=== PATIENT | female | born 1945 | race Caucasian/White ===

== ENCOUNTER → 2017-06-01 | Outpatient (REF) ==
[~2017-06-01] MED LIST: ASPI81EC PO; ASPIRIN E.C. 8181 MG PO; ATORVASTATIN; BEXTRA PO; CATAPRES 0.1MG0.1 MG PO; COZAAR 50MG50 MG/TAB PO; COZAAR100 MG PO; FLEXERIL 1010 MG/TAB PO; FLEXERIL10 MG PO; GLUCOPHAGE; GLUCOPHAGE850 MG/TAB PO; HCTZ 25MG25 MG PO; HYDRODIURIL; HYDRODIURIL25 MG PO; HYDRODIURIL50 MG PO; LIPITOR 10MG10 MG PO; LIPITOR 40MG TA40 MG PO; LIPITOR40 MG PO; LISINOPRIL; LOPRESSOR; LOPRESSOR 225 MG/TAB PO; LOPRESSOR100 MG PO; LOPRESSOR50 MG PO; LORTAB 5/500 501 TAB; LORTAB 5/500 501 TAB PO; METFORMIN850 MG PO; NITROSTAT0.4 MG/TAB SL; NORCO 325 MG-51 TAB PO; PAXIL 20MG20 MG PO; PAXIL20 MG PO; PLAVIX 75MG TAB75 MG PO; PREVACID30 M1 PO; PREVACID30 MG PO; PRILOSEC 20MG20 MG PO; RANEXA 500MG T500 MG PO; ZESTRIL20 MG PO; [UNRECOGNIZED DRUG - OTHER] PO
== END ==
LOC: ZLAB.WCH 18:12
DX: Z01.89 Encounter for other specified special examinations (principal)

== ENCOUNTER 2017-06-17 10:09 | Day surgery (SDC) | payer MEDICARE, MEDICAID ==
[~2017-06-17] VITALS: Ht 162.6 cm; Wt 75.0 kg
[2017-06-17] VITALS (12 sets, daily range): BP systolic 138–176; BP diastolic 83–107; PULSE 66–86; TEMP 97.8–98.4
[~2017-06-17 10:09] MED LIST changes: -CATAPRES 0.1MG0.1 MG PO; -COZAAR100 MG PO; -LOPRESSOR 225 MG/TAB PO; -RANEXA 500MG T500 MG PO
[2017-06-17 11:17] LABS: HEMATOCRIT 42.2 % (37.0-47.0); HEMOGLOBIN 14.5 g/dl (12.5-16.0); MEAN CELL VOLUME 85 fl (80.0-100.0); MEAN CORPUSCULAR HEMOGLOBIN 29 pg (27.0-31.0); MEAN CORPUSCULAR HGB CONC 34 g/dl (33.0-37.0); MEAN PLATELET VOLUME 9.3 fl (7.4-10.4); PLATELET COUNT 221 K/mm3 (130-400); RED BLOOD COUNT 4.96 M/mm3 (4.10-5.30); REDCELL DISTRIBUTION WIDTH-CV 12.2 % (11.5-14.5); WHITE BLOOD COUNT 4.7 K/mm3 (4.8-10.8)
[2017-06-17 11:23] LABS: PROTHROMBIN TIME 10.8 SECONDS (9.7-12.8)
[2017-06-17 11:35] LABS: CALCIUM 9.1 mg/dL (8.4-10.2); CREATININE, serum 0.97 mg/dL (0.52-1.25); POTASSIUM 3.9 mmol/L (3.4-5.0)
[2017-06-17] MEDS ORDERED: ASPIRIN E.C. 8181 MG PO (11:37)
== END 2017-06-17 17:55 | disposition home or self-care (01) ==
LOC: COL.CAR 10:09
PROVIDERS: Internal Medicine Interventional Cardiology
DX: I25.10 Atherosclerotic heart disease of native coronary artery without angina pectoris (principal); I71.4 Abdominal aortic aneurysm, without rupture; I74.5 Embolism and thrombosis of iliac artery; I83.813 Varicose veins of bilateral lower extremities with pain; I73.9 Peripheral vascular disease, unspecified; I10 Essential (primary) hypertension; I25.2 Old myocardial infarction; E11.9 Type 2 diabetes mellitus without complications; E78.5 Hyperlipidemia, unspecified; K21.9 Gastro-esophageal reflux disease without esophagitis; M19.90 Unspecified osteoarthritis, unspecified site; F41.9 Anxiety disorder, unspecified; Z79.84 Long term (current) use of oral hypoglycemic drugs; Z90.49 Acquired absence of other specified parts of digestive tract; Z90.710 Acquired absence of both cervix and uterus; Z87.891 Personal history of nicotine dependence; Z85.828 Personal history of other malignant neoplasm of skin; Z85.41 Personal history of malignant neoplasm of cervix uteri; Z82.49 Family history of ischemic heart disease and other diseases of the circulatory system
CPT/HCPCS: C1760; C1769; C1894; J2250; J3010; Q9967

== ENCOUNTER 2017-07-07 16:15 | Observation (INO) | payer MEDICARE, MEDICAID ==
[~2017-07-07] VITALS: Ht 162.6 cm; Wt 77.0 kg
[2017-07-07 17:02] LABS: BASO # 0.1 (0.0-0.2); BASO % 0.9 % (0.0-2.0); EOS # 0.2 (0.0-0.7); EOS % 4.5 % (0-4.0); GRAN # 3.1 (1.4-6.5); GRAN % 58.2 % (42.2-75.2); HEMATOCRIT 41.9 % (37.0-47.0); HEMOGLOBIN 14.8 g/dl (12.5-16.0); LYMPH # 1.3 (1.2-3.4); MEAN CELL VOLUME 84 fl (80.0-100.0); MEAN CORPUSCULAR HEMOGLOBIN 30 pg (27.0-31.0); MEAN CORPUSCULAR HGB CONC 35 g/dl (33.0-37.0); MEAN PLATELET VOLUME 9.3 fl (7.4-10.4); MONO # 0.6 (0.1-0.6); PLATELET COUNT 246 K/mm3 (130-400); RED BLOOD COUNT 4.97 M/mm3 (4.10-5.30); REDCELL DISTRIBUTION WIDTH-CV 12.3 % (11.5-14.5); WHITE BLOOD COUNT 5.4 K/mm3 (4.8-10.8)
[2017-07-07 17:11] LABS: ADJUSTED CALCIUM 9.1 mg/dL (8.4-10.2); ALANINE AMINOTRANSFERASE 32 U/L (9-52); ALBUMIN 4.1 gm/dL (3.5-5.0); ALKALINE PHOSPHATASE 65 U/L (50-136); ANION GAP 10 mmol/L (7-16); BILIRUBIN,TOTAL 0.6 mg/dL (0.0-1.0); BLOOD UREA NITROGEN 16 mg/dL (7-17); CALCIUM 9.2 mg/dL (8.4-10.2); CARBON DIOXIDE 26 mmol/L (22-30); CHLORIDE 101 mmol/L (98-107); CREATININE, serum 0.98 mg/dL (0.52-1.25); GLUCOSE 115 mg/dL (74-106); LIPASE 611 U/L (23-300); POTASSIUM 3.4 mmol/L (3.4-5.0); SODIUM 137 mmol/L (137-145); TOTAL PROTEIN 6.8 gm/dL (6.4-8.2)
[2017-07-07 17:23] LABS: TROPONIN-I < 0.012 ng/mL (0.000-0.034)
[2017-07-07] MEDS ORDERED: RANEXA 500MG T500 MG PO (18:25)
[2017-07-07 20:32] VITALS: BP 141/67; PULSE 58; TEMP 97.7
[2017-07-07 21:06] LABS: INR 0.9 (0.8-3.0); PROTHROMBIN TIME 10.1 SECONDS (9.7-12.8)
[2017-07-07 21:09] LABS: PARTIAL THROMBOPLASTIN TIME 29.6 SECONDS (26.0-37.0)
[2017-07-07 21:11] LABS: MAGNESIUM 1.8 mg/dL (1.6-2.3)
[2017-07-07 21:34] LABS: TROPONIN-I < 0.012 ng/mL (0.000-0.034)
[2017-07-08 00:15] VITALS: BP 142/71; PULSE 55; TEMP 97
[2017-07-08 03:23] VITALS: BP 150/59; PULSE 54; TEMP 97.8
[2017-07-08 06:57] LABS: BASO % 0.8 % (0.0-2.0); EOS # 0.3 (0.0-0.7); HEMATOCRIT 41.6 % (37.0-47.0); HEMOGLOBIN 14.3 g/dl (12.5-16.0); LYMPH # 1.1 (1.2-3.4); LYMPH % 21.1 % (20.0-51.0); MEAN CELL VOLUME 87 fl (80.0-100.0); MEAN CORPUSCULAR HEMOGLOBIN 30 pg (27.0-31.0); MEAN CORPUSCULAR HGB CONC 34 g/dl (33.0-37.0); MEAN PLATELET VOLUME 9.2 fl (7.4-10.4); MONO # 0.6 (0.1-0.6); MONO % 12.7 % (1.7-9.3); PLATELET COUNT 217 K/mm3 (130-400); RED BLOOD COUNT 4.81 M/mm3 (4.10-5.30); REDCELL DISTRIBUTION WIDTH-CV 12.6 % (11.5-14.5)
[2017-07-08 07:12] LABS: ADJUSTED CALCIUM 9.1 mg/dL (8.4-10.2); ALANINE AMINOTRANSFERASE 30 U/L (9-52); ALBUMIN 3.8 gm/dL (3.5-5.0); ALKALINE PHOSPHATASE 55 U/L (50-136); ANION GAP 8 mmol/L (7-16); BILIRUBIN,TOTAL 0.8 mg/dL (0.0-1.0); BLOOD UREA NITROGEN 13 mg/dL (7-17); CALCIUM 8.9 mg/dL (8.4-10.2); CARBON DIOXIDE 29 mmol/L (22-30); CHLORIDE 104 mmol/L (98-107); CHOLESTEROL 211 mg/dL (120-200); CREATININE, serum 1.04 mg/dL (0.52-1.25); GLUCOSE 103 mg/dL (74-106); HDL CHOLESTEROL 50 mg/dL; LDL CHOLESTEROL 122 mg/dL; LIPASE 48 U/L (23-300); POTASSIUM 3.9 mmol/L (3.4-5.0); SODIUM 140 mmol/L (137-145); TOTAL PROTEIN 6.3 gm/dL (6.4-8.2); TRIGLYCERIDE 197 mg/dL
[2017-07-08 07:22] LABS: TROPONIN-I < 0.012 ng/mL (0.000-0.034)
[2017-07-08 08:09] VITALS: BP 159/76; PULSE 59; TEMP 98.4
[2017-07-08 11:42] VITALS: BP 157/66; PULSE 75; TEMP 97.6
[2017-07-08] MEDS ORDERED: LOPRESSOR 225 MG/TAB PO (14:46)
[2017-07-08] MEDS ORDERED: COZAAR100 MG PO (14:47)
[2017-07-08] MEDS ORDERED: ASPIRIN E.C. 8181 MG PO (14:49)
[2017-07-08 14:58] VITALS: BP 149/60; PULSE 62; TEMP 98.4
== END 2017-07-08 18:30 | disposition home or self-care (01) ==
LOC: COL.ER 16:15 → MEDICAL 19:08
PROVIDERS: Emergency Medicine; Nurse Practitioner Family
DX: R07.9 Chest pain, unspecified (principal); I10 Essential (primary) hypertension; I25.10 Atherosclerotic heart disease of native coronary artery without angina pectoris; R42 Dizziness and giddiness; I25.2 Old myocardial infarction; K29.70 Gastritis, unspecified, without bleeding; K21.9 Gastro-esophageal reflux disease without esophagitis; E78.5 Hyperlipidemia, unspecified; K44.9 Diaphragmatic hernia without obstruction or gangrene; E11.9 Type 2 diabetes mellitus without complications; Z79.01 Long term (current) use of anticoagulants; Z79.4 Long term (current) use of insulin; Z95.818 Presence of other cardiac implants and grafts; Z90.710 Acquired absence of both cervix and uterus; Z90.49 Acquired absence of other specified parts of digestive tract; Z90.721 Acquired absence of ovaries, unilateral; Z85.41 Personal history of malignant neoplasm of cervix uteri; Z87.891 Personal history of nicotine dependence; Z85.828 Personal history of other malignant neoplasm of skin; Z86.79 Personal history of other diseases of the circulatory system
CPT/HCPCS: 99222-AI; 99239; C9113; G0378; G8978-GP; G8979-GP; G8987-GO; G8988-GO; J1170; J2550; J7030; Q9967

== ENCOUNTER 2017-07-19 15:58 | Inpatient (IN) | payer MEDICARE, MEDICAID ==
[~2017-07-19] VITALS: Ht 162.6 cm; Wt 76.1 kg
[2017-07-19] VITALS (389 sets, daily range): BP systolic 77–191; BP diastolic 36–114; PULSE 57–83; TEMP 97.8–97.9; O2SAT 78–100
[~2017-07-19 15:58] MED LIST changes: +COZAAR100 MG PO; +LOPRESSOR 225 MG/TAB PO; +RANEXA 500MG T500 MG PO
[2017-07-20] VITALS (754 sets, daily range): BP systolic 73–131; BP diastolic 44–87; PULSE 72–80; TEMP 97.1–98.4; O2SAT 89–100
[2017-07-20 05:49] LABS: BASO % 0.2 % (0.0-2.0); EOS % 0.2 % (0-4.0); GRAN # 4.9 (1.4-6.5); GRAN % 77.5 % (42.2-75.2); HEMATOCRIT 35.5 % (37.0-47.0); HEMOGLOBIN 11.8 g/dl (12.5-16.0); LYMPH # 0.7 (1.2-3.4); LYMPH % 11.6 % (20.0-51.0); MEAN CELL VOLUME 87 fl (80.0-100.0); MEAN CORPUSCULAR HEMOGLOBIN 29 pg (27.0-31.0); MEAN CORPUSCULAR HGB CONC 33 g/dl (33.0-37.0); MEAN PLATELET VOLUME 9.3 fl (7.4-10.4); MONO # 0.6 (0.1-0.6); MONO % 10.2 % (1.7-9.3); PLATELET COUNT 181 K/mm3 (130-400); RED BLOOD COUNT 4.06 M/mm3 (4.10-5.30); REDCELL DISTRIBUTION WIDTH-CV 12.6 % (11.5-14.5); WHITE BLOOD COUNT 6.3 K/mm3 (4.8-10.8)
[2017-07-20 06:00] LABS: CALCIUM 8.1 mg/dL (8.4-10.2); CREATININE, serum 1.05 mg/dL (0.52-1.25); POTASSIUM 3.7 mmol/L (3.4-5.0)
== END 2017-07-20 17:15 | disposition home or self-care (01) | DRG 301 ==
LOC: COL.RAD 15:58 → ICU 17:03
PROVIDERS: Internal Medicine Interventional Cardiology
DX: I71.03 Dissection of thoracoabdominal aorta (principal); I10 Essential (primary) hypertension; I25.10 Atherosclerotic heart disease of native coronary artery without angina pectoris; F17.210 Nicotine dependence, cigarettes, uncomplicated; I73.9 Peripheral vascular disease, unspecified; Z95.820 Peripheral vascular angioplasty status with implants and grafts
CPT/HCPCS: J1940; J2270; J2405; J7030; Q9967

== ENCOUNTER 2017-07-25 13:09 | Emergency (ER) | payer MEDICARE, MEDICAID ==
[~2017-07-25] VITALS: Ht 162.6 cm; Wt 72.7 kg
[2017-07-25 13:10] VITALS: TEMP 97.6
[2017-07-25] MEDS ORDERED: COZAAR100 MG PO (13:27)
[2017-07-25] MEDS ORDERED: CATAPRES 0.1MG0.1 MG PO (13:40)
[2017-07-25 14:00] LABS: ADJUSTED CALCIUM 9.4 mg/dL (8.4-10.2); ALBUMIN 3.8 gm/dL (3.5-5.0); BILIRUBIN,TOTAL 1.7 mg/dL (0.0-1.0); CALCIUM 9.2 mg/dL (8.4-10.2); CREATININE, serum 1.9 mg/dL (0.52-1.25); POTASSIUM 3.2 mmol/L (3.4-5.0); TOTAL PROTEIN 6.8 gm/dL (6.4-8.2)
[2017-07-25 14:08] LABS: BASO # 0.1 (0.0-0.2); BASO % 0.8 % (0.0-2.0); EOS # 0.3 (0.0-0.7); EOS % 3.6 % (0-4.0); GRAN # 4.7 (1.4-6.5); GRAN % 62.9 % (42.2-75.2); HEMOGLOBIN 12.6 g/dl (12.5-16.0); LYMPH # 1.3 (1.2-3.4); LYMPH % 17.2 % (20.0-51.0); MEAN CELL VOLUME 84 fl (80.0-100.0); MEAN CORPUSCULAR HEMOGLOBIN 30 pg (27.0-31.0); MEAN CORPUSCULAR HGB CONC 36 g/dl (33.0-37.0); MEAN PLATELET VOLUME 9.7 fl (7.4-10.4); MONO # 1.1 (0.1-0.6); PLATELET COUNT 302 K/mm3 (130-400); RED BLOOD COUNT 4.22 M/mm3 (4.10-5.30); REDCELL DISTRIBUTION WIDTH-CV 12.7 % (11.5-14.5); WHITE BLOOD COUNT 7.5 K/mm3 (4.8-10.8)
[2017-07-25 14:09] LABS: HEMATOCRIT 35.5 % (37.0-47.0)
[2017-07-25 14:13] LABS: PH 5 (5-8); SQUAMOUS EPITHELIAL 0-2 /hpf; URINE APPEARANCE Clear; URINE BACTERIA None Seen /hpf; URINE BILIRUBIN Negative (NEGATIVE); URINE BLOOD Negative (NEGATIVE); URINE COLOR Yellow; URINE GLUCOSE Negative (NEGATIVE); URINE KETONE Negative (NEGATIVE); URINE RBC 0-2 /hpf; URINE UROBILINOGEN Negative (NEGATIVE); URINE WBC 0-2 /hpf
[2017-07-25 15:24] VITALS: BP 114/55; PULSE 60
== END 2017-07-25 15:39 | disposition home or self-care (01) ==
LOC: COL.ER 13:09
PROVIDERS: Family Medicine
DX: I95.9 Hypotension, unspecified (principal); E86.0 Dehydration; I25.10 Atherosclerotic heart disease of native coronary artery without angina pectoris; Z79.82 Long term (current) use of aspirin; Z86.79 Personal history of other diseases of the circulatory system
CPT/HCPCS: J2405; J7030; Q9967

== ENCOUNTER 2018-01-06 09:13 | Day surgery (SDC) | payer MEDICARE, MEDICAID ==
[~2018-01-06] VITALS: Ht 160 cm; Wt 74.7 kg
[~2018-01-06 09:13] MED LIST changes: +CATAPRES 0.1MG0.1 MG PO
[2018-01-06 09:52] VITALS: BP 114/71; PULSE 68; TEMP 98.4
[2018-01-06] MEDS ORDERED: CATAPRES 0.1MG0.1 MG PO (09:59)
[2018-01-06] MEDS ORDERED: LOPRESSOR100 MG PO (10:04)
[2018-01-06 11:30] VITALS: BP 87/63; PULSE 73; TEMP 98.2
[2018-01-06 11:45] VITALS: BP 110/65; PULSE 73
[2018-01-06 12:00] VITALS: BP 103/59; PULSE 70
[2018-01-06 12:15] VITALS: BP 108/73; PULSE 71
[2018-01-06 12:45] VITALS: BP 102/68; PULSE 72
== END 2018-01-06 13:00 | disposition home or self-care (01) ==
LOC: SDCO 09:13
DX: D12.5 Benign neoplasm of sigmoid colon (principal); D12.8 Benign neoplasm of rectum; K57.30 Diverticulosis of large intestine without perforation or abscess without bleeding; R19.7 Diarrhea, unspecified; K21.9 Gastro-esophageal reflux disease without esophagitis; K44.9 Diaphragmatic hernia without obstruction or gangrene; K76.0 Fatty (change of) liver, not elsewhere classified; E78.00 Pure hypercholesterolemia, unspecified; K58.9 Irritable bowel syndrome, unspecified; I25.119 Atherosclerotic heart disease of native coronary artery with unspecified angina pectoris; I25.2 Old myocardial infarction; E11.9 Type 2 diabetes mellitus without complications; G43.909 Migraine, unspecified, not intractable, without status migrainosus; Z90.710 Acquired absence of both cervix and uterus; Z90.49 Acquired absence of other specified parts of digestive tract
CPT/HCPCS: OP; J2704; J7030

== ENCOUNTER → 2021-03-25 | Outpatient (CLI) | payer MEDICARE | LOC: COL.RAD 13:37 | DX: Z01.812 Encounter for preprocedural laboratory examination (principal); I71.02 Dissection of abdominal aorta; I70.0 Atherosclerosis of aorta; I70.209 Unspecified atherosclerosis of native arteries of extremities, unspecified extremity; N26.1 Atrophy of kidney (terminal); Z90.49 Acquired absence of other specified parts of digestive tract; Z90.710 Acquired absence of both cervix and uterus | CPT/HCPCS: Q9967 ==